=== PATIENT | female | born 2000 | race Hispanic/Latino ===

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

== ENCOUNTER 2023-07-28 17:37 | Observation (INO) | payer MEDICAID, OTHER ==
[~2023-07-28] VITALS: Ht 162.6 cm; Wt 73.0 kg
[2023-07-28 17:49] VITALS: BP 129/78; PULSE 86; RESP 16; O2SAT 100
[2023-07-28 18:29] LABS: APPEARANCE,URINE CLEAR (CLEAR); BILIRUBIN,URINE NEGATIVE (NEGATIVE); COLOR,URINE YELLOW (YELLOW); GLUCOSE, URINE (UA) NEGATIVE (NEGATIVE); KETONES,URINE 5 mg/dL (NEGATIVE); LEUKOCYTE ESTERASE ,URINE 75 Leu/uL (NEGATIVE); NITRATE,URINE NEGATIVE (NEGATIVE); OCCULT BLOOD,URINE NEGATIVE (NEGATIVE); PH,URINE 6.5 (5.0-8.0); PROTEIN,URINE 30 mg/dL (NEGATIVE)
[2023-07-28 18:31] LABS: ADD UA MICROSCOPIC YES
[2023-07-28 18:34] LABS: BACTERIA,URINE RARE /HPF (None Seen); MUCUS,URINE FEW LPF (None Seen); RBC,URINE 0-1 /HPF (0-1); SQUAMOUS EPITHELIAL CELL,UR FEW /HPF (0-2)
[2023-07-28] MEDS: LACTATED RINGERS 1000ML 1,000 ML IV SCH (18:50)
[2023-07-29] MEDS: LACTATED RINGERS 1000ML 1,000 ML IV SCH (01:14)
== END 2023-07-29 08:10 | disposition home or self-care (01) ==
LOC: EDH 17:37 → LDH 17:38 → EDH 17:53
PROVIDERS: ADMIT Obstetrics & Gynecology; ATTEND Obstetrics & Gynecology
DX: O36.8130 Decreased fetal movements, third trimester, not applicable or unspecified (principal); O26.893 Other specified pregnancy related conditions, third trimester; M79.89 Other specified soft tissue disorders; R10.30 Lower abdominal pain, unspecified; Z3A.31 31 weeks gestation of pregnancy
CPT/HCPCS: 96361 ×4; 96360; 87088; 81001; 76819; G0378 ×14; G0379